=== PATIENT | male | born 1960 | race Caucasian/White ===

== ENCOUNTER 2017-02-02 05:49 | Inpatient (IN) | payer BC ==
[2017-01-29 10:13] LABS: BASOPHILS 0.8 %; BASOPHILS ABSOLUTE 0.05 10/3/uL (0.0-0.16); EOSINOPHILS 4.3 %; EOSINOPHILS ABSOLUTE 0.28 10/3/uL (0.0-0.53); HEMATOCRIT 34.2 % (40.0-51.0); HEMOGLOBIN 11.2 g/dL (13.6-17.8); IMMATURE GRANULOCYTES 0.2 %; IMMATURE GRANULOCYTES ABSOLUTE 0.01 10/3/uL (0.0-0.11); LYMPHOCYTES 16.4 %; LYMPHOCYTES ABSOLUTE 1.08 10/3/uL (0.67-4.30); MANUAL DIFF NO %; MEAN CORPUS HGB CONC 32.7 g/dL (32.0-36.0); MEAN CORPUSCULAR VOLUME 88.6 fL (80-100); MEAN PLATELET VOLUME 9.4 fL (9.2-13.0); MONOCYTES 11.6 %; MONOCYTES ABSOLUTE 0.76 10/3/uL (0.21-1.20); NEUTROPHILS 66.7 %; PLATELET COUNT 378 10/3/uL (150-400); RBC DISTRIBUTION WIDTH 21.6 % (12.0-16.0); RED CELL COUNT 3.86 10/6/uL (4.7-6.1); WHITE BLOOD CELLS 6.6 10/3/uL (4.5-10.5)
[2017-01-29 10:32] LABS: A/G RATIO 1.3 (0.7-1.9); ALBUMIN 4.2 G/DL (3.5-5.0); ALKALINE PHOSPHATASE 69 U/L (45-117); BUN (BLOOD UREA NITROGEN) 18 MG/DL (6-23); CALCIUM, SERUM 10.3 MG/DL (8.5-10.4); CHLORIDE, SERUM 105 MMOL/L (96-112); CO2 (CARBON DIOXIDE) 22 MMOL/L (24-34); CREATININE 1.06 MG/DL (0.70-1.30); GFR AFRICAN AMERICAN 90 ML/MIN (>=60); GFR NON AFRICAN AMERICAN 78 ML/MIN (>=60); GLOBULIN 3.3 G/DL (2.5-4.1); GLUCOSE, SERUM 116 MG/DL (60-99); POTASSIUM, SERUM 4.8 MMOL/L (3.5-5.3); SGOT(AST) 15 U/L (5-40); SGPT(ALT) 19 U/L (5-65); SODIUM, SERUM 136 MMOL/L (135-148); TOTAL BILIRUBIN 0.3 MG/DL (0-1.2); TOTAL PROTEIN 7.5 G/DL (6.0-8.5)
--- NOTE | ~2017-02-02 | PREOPHP ---
PreOp History and Physical [address] [place]. [address] NAME: ALEENA HOLGUIN : 58 STATUS : PRE IN PAT#: [id number] AGE: 56 ADM/REG DATE : MR#: [id number] REPORT SERV DATE: 02/02/17 DICTATED BY: KEENAN ADAMS III DATE: 01/09/17 REPORT STATUS : Draft TRANSCRIBED BY: MODL DATE: 01/09/17 HISTORY OF PRESENT ILLNESS: This 56-year-old male comes to the operating room for sigmoid colectomy for biopsy-proven cancer of the sigmoid colon. The patient recently had routine physical exam. He was found to be profoundly anemic. This led to a colonoscopy and was found have a large partly obstructing mass at 22 cm in the sigmoid colon. Biopsy confirmed this to be adenocarcinoma. The patient has had intermittent episodes of bright red blood associated with this malignancy. These required 2 units of blood in transfusion. The patient has evidence for metastatic disease with three separate hepatic metastasis, which may be resectable or amenable to local treatment. Treatment regarding these will be delayed until after surgery and chemotherapy which is planned for the patient. The patient has had no weight loss. He has some obstructive symptoms in terms of constipation requiring laxatives. PAST MEDICAL HISTORY: 1. Hypertension. 2. Diabetes mellitus. 3. Arthritis. 4. Anemia. 5. Hypothyroidism. 6. Gout. 7. Lobo esophagitis. MEDICATIONS: Allopurinol, carvedilol, fenofibrate, levothyroxine, lisinopril, meloxicam, metformin, methocarbamol, oxycodone, stool softeners. ALLERGIES: NONE. PAST SURGICAL HISTORY: Back surgery. FAMILY HISTORY: Positive for diabetes and heart disease. SOCIAL HISTORY: The patient has a previous tobacco abuse. He has a history of alcohol use. REVIEW OF SYSTEMS: The patient complains of abnormal bleeding, blood in his stools, back pain, joint pain. PHYSICAL EXAMINATION: GENERAL: This is a large somewhat obese male, in no acute distress. He is alert and oriented x3. VITAL SIGNS: Blood pressure 122/59, pulse 77, temperature 97.1. HEENT: Unremarkable. Cranial nerves 2 through 12 are normal. LUNGS: Clear. CARDIAC: Normal. ABDOMEN: Soft, nontender. No masses. EXTREMITIES: Normal with no edema. PreOp History and Physical [address] [address] NAME: ALEENA HOLGUIN : 58 STATUS : PRE IN PAT#: [id number] AGE: 56 ADM/REG DATE : MR#: [id number] REPORT SERV DATE: 02/02/17 DICTATED BY: KEENAN ADAMS III DATE: 01/09/17 REPORT STATUS : Draft TRANSCRIBED BY: MODL DATE: 01/09/17 LABORATORY DATA: Colonoscopy shows a partly obstructing mass, which is ulcerated in sigmoid colon 22 cm. Biopsy confirmed this to be a moderately differentiated adenocarcinoma. CT scan of the abdomen and pelvis shows three separate hepatic lesions, one in the left lobe, two in the right lobe, suspicious for metastasis. ASSESSMENT: 1. 56-year-old male biopsy-proven adenocarcinoma of the sigmoid colon, associated with intermittent bleeding, requiring transfusion, and anemia. This tumor is circumferential and partly obstructing the colon endoscopically. 2. Hypertension. 3. Diabetes mellitus. 4. Arthritis. 5. Anemia related to #1. PLAN: The patient comes to the operating room now for sigmoid colectomy. This procedure, the risks, benefits, and alternatives, including not limited to the risk for bleeding, infection, enterotomy, injury to any abdominal structure, postop small bowel obstruction, ileus, incisional hernia, dehiscence, anastomotic leak, requiring reoperation, colostomy, ureteral injury, and unforeseen complications including deep venous thrombosis, pulmonary embolus, myocardial infarction, stroke, pneumonia, and , have been fully and completely explained to the patient's family prior to surgery. The fact that this is a major operation with risk for major morbidity and mortality has been explained. The expected length of recovery has been explained. The fact that he will need definitive surgery regarding the hepatic metastasis and chemotherapy has been explained. The patient's questions have been answered. He clearly understands the risks and agrees to surgery as planned. JAH/VALENTINA Keenan Adams III, M.D. / [id number]
--- NOTE | ~2017-02-02 | DS ---
Discharge Summary [facility] [address] [place]. [address] NAME: ALEENA HOLGUIN : 58 STATUS : DIS IN PAT#: [id number] AGE: 56 ADM/REG DATE : 02/02/17 MR#: [id number] REPORT SERV DATE: 02/13/17 DICTATED BY: KEENAN ADAMS III DATE: 02/12/17 REPORT STATUS : Draft TRANSCRIBED BY: MODL DATE: 02/12/17 Data Collection from hospitalization DISCHARGE DIAGNOSIS(ES): 1. Sigmoid colon cancer, largely locally advanced sigmoid colon cancer with invasion into the segment of small bowel. 2. Hypertension. 3. Diabetes mellitus. 4. Anemia. 5. Hypothyroidism. 6. History of Lobo esophagitis. 7. Gout. 8. Arthritis. CONSULTATIONS: None. PROCEDURES PERFORMED: Sigmoid colectomy with en-bloc resection of segment of small bowel and rigid sigmoidoscopy, 02/02/2017. PATHOLOGY: Colon sigmoid resection, invasive adenocarcinoma; segment of colon proximal anastomotic ring, no diagnostic change; segment of colon distal anastomotic ring, no diagnostic change. MEDICATIONS: Zyloprim 300 mg every morning, Coreg 12.5 mg twice daily, levothyroxine, sodium 50 mcg daily, Prinivil 40 mg every morning, Prilosec 40 mg every morning, Mobic 15 mg daily, Glucophage 500 mg with breakfast and supper, fenofibrate 160 mg every morning, Roxicodone 10 mg every 6 hours as needed, Ferrex 150 mg twice daily, vitamin C 500 mg twice daily, multiple vitamin one daily, Colace 100 mg twice daily as needed, and Xanax 0.5 mg twice daily. CONDITION AT DISCHARGE: Upon discharge, he did appear to be doing well and had no complaints. DISPOSITION: He had been discharged home to continue a GI soft 1800 calorie, ADA, low fat, low residue diet with activity as discussed. He was to call my office for a followup appointment for two weeks. HOSPITAL COURSE: This 56-year-old male, had recently had a routine physical exam. He was found to be profoundly anemic. This led to a colonoscopy where he was found to have a largely partly obstructing mass at 22 cm in the sigmoid colon. Biopsy confirmed this to be adenocarcinoma. He had intermittent episodes of bright red blood associated with this malignancy. These required 2 units of blood in transfusion. He had evidence for metastatic disease with three separate hepatic metastases which may be resectable or amenable to local treatment. Treatment regarding these will be delayed until after surgery and chemotherapy which was planned for the patient. He had no weight loss. He had some obstructive symptoms in terms of constipation requiring laxatives. He was now admitted for surgery and further treatment. Upon admission to the hospital, he had been taken to the operating room where he did undergo the above procedure. He had tolerated this well and was transferred to the Discharge Summary [address] [address] NAME: ALEENA HOLGUIN : 58 STATUS : DIS IN PAT#: [id number] AGE: 56 ADM/REG DATE : 02/02/17 MR#: [id number] REPORT SERV DATE: 02/13/17 DICTATED BY: KEENAN ADAMS III DATE: 02/12/17 REPORT STATUS : Draft TRANSCRIBED BY: MODJacques DATE: 02/12/17 recovery room. On postop day #1, he did have some incisional pain, however, appeared to be doing well, otherwise, he was afebrile and his vital signs were stable. He had been placed on a clear liquid diet. His Hendricks catheter was removed. On postop day #2, he had no complaints and did appear to be alert and comfortable. He had remained afebrile and his vital signs were stable. His diet was advanced to a full liquid diet, and he was evaluated by Physical Therapy. On postop day #3, he continued to do well and wanted to go home. He had been tolerating a full liquid diet and had no new complaints noted. He did remain in stable condition and was then discharged with the above instructions. Information collected by: Zoë ChristineIAnitaT. I submit the above information as my discharge summary. RW/PAGEL Keenan Adams III, M.D. / [id number] CC: Lexii Underwood III, M.D.
--- NOTE | ~2017-02-02 | OP ---
Record Of Operation [facility] [address] [place] [place]. [address] NAME: ALEENA HOLGUIN : 58 STATUS : ADM IN [facility]#: [id number] AGE: 56 ADM/REG DATE : 02/02/17 MR#: [id number] REPORT SERV DATE: 02/02/17 DICTATED BY: KEENAN ADAMS III DATE: 02/02/17 REPORT STATUS : Draft TRANSCRIBED BY: MODL DATE: 02/02/17 DATE OF PROCEDURE: 02/02/2017 PREOPERATIVE DIAGNOSIS: Sigmoid colon cancer. POSTOPERATIVE DIAGNOSIS: Sigmoid colon cancer, large locally advanced sigmoid colon cancer, with invasion into the segment of small bowel. PROCEDURE: Sigmoid colectomy with en bloc resection of segment of small bowel and rigid sigmoidoscopy. SURGEON: Keenan Adams M.D. ANESTHESIA: General with intubation. COMPLICATIONS: None. ESTIMATED BLOOD LOSS: 50 mL. SPECIMEN: Sigmoid colon with segment of small bowel. DRAINS: [place] in subcutaneous tissue. LAP AND SPONGE COUNT: Correct x3. BRIEF HISTORY: This 56-year-old male, with history of hypertension, diabetes, arthritis, and anemia, presented with a large obstructing and bleeding cancer of the sigmoid colon. The patient had evidence for GI bleeding requiring previous transfusion. His workup showed evidence four hepatic metastatic lesions. It was felt that an urgent sigmoid colectomy was indicated. The plan treatable is for the patient to have sigmoid colectomy, followed by systemic chemotherapy, followed by local treatment of his hepatic metastasis, either radiofrequency ablation, or stereotactic radiation versus surgical resection. Regarding the surgery today, the procedure risks, benefits, and alternatives, including not limited to the risk for bleeding, infection, enterotomy, injury to any abdominal structure, postop small bowel obstruction, ileus, incisional hernia, dehiscence, anastomotic leak, requiring reoperation, colostomy, ureteral injury, and unforeseen complications including deep venous thrombosis, pulmonary embolus, myocardial infarction, stroke, pneumonia, and , were fully and completely explained to the patient's family at length prior to surgery. The fact that this was a major operation with risk for major morbidity and mortality has been explained as well as expected length of recovery. The patient had questions, which were answered. He fully understood the risks and agreed to surgery as planned. FINDINGS: The patient had extremely large cancer of the sigmoid colon. There was an involvement of the segment of small bowel which was resected en bloc. The tumor was Record Of Operation [place] [id number] [facility] [place]. [address] NAME: ALEENA HOLGUIN : 58 STATUS : ADM IN PAT#: [id number] AGE: 56 ADM/REG DATE : 02/02/17 MR#: [id number] REPORT SERV DATE: 02/02/17 DICTATED BY: KEENAN ADAMS III DATE: 02/02/17 REPORT STATUS : Draft TRANSCRIBED BY: VALENTINA DATE: 02/02/17 extremely large and bulky. There was no evidence for carcinomatosis or peritoneal implants in the pelvis. DESCRIPTION OF PROCEDURE: After being properly identified, and after discussing the risks of surgery with the patient and family again in the preoperative area, and after appropriate bowel preparation at home, the patient was taken to the operating room and placed in the supine position on the operating room table. General anesthesia was administered and he was intubated without difficulty. A Hendricks catheter was inserted. His legs were placed in stirrups. They were carefully and appropriately padded and protected. The abdomen and perineum were prepped and draped sterilely in the usual fashion. After an appropriate "time out" per JCAHO standards, a midline incision was made from just beneath the umbilicus towards the pubis. The incision was continued through the subcutaneous tissue. Hemostasis was controlled with cautery. The incision was continued through the fascia. The abdominal cavity was entered. The patient had extremely large, bulky cancer of the sigmoid colon occupying the majority of the pelvis. There was a loop of small bowel which was adherent to this and the tumor appeared to be invading into the small bowel, and it was felt that this en bloc resection of this loop of small bowel was indicated. There was no evidence for carcinomatosis or peritoneal implants. Using sharp dissection, peritoneal flexion to the left colon and sigmoid colon was divided along the line of Toldt. The colon was mobilized medially. We selected a point for division of the sigmoid colon near its junction with the left colon. A window was made in the mesentery of the colon at this point. A AVINASH stapler used about the colon this point. We continued our mobilization distally. The left and right ureters were appreciated not encroached upon or injured. Again, there was a segment of small bowel which was densely adherent to the mesentery where the tumor was located. It was felt that resection of the small bowel was indicated in order to obtain clear margins. We selected a point for division of the small bowel proximal and distal to this area. Windows were made in the mesentery to the small bowel and the AVINASH stapler was used about the mesentery of small bowel at this point proximally and distally. The mesentery to the sigmoid colon was then divided using the Harmonic scalpel. This was done along the base of the mesentery, so as to perform correct oncologic dissection of the lymphovascular supply to the sigmoid colon. The colon sigmoid colon was then divided distal to the tumor, just above the peritoneal reflection. This was done using the Contour stapler. The sigmoid colon involved segment of small bowel was thus removed and sent to pathology and interpreted as containing clear margins. We then performed a ceia-me-gqog anastomosis between the proximal and distal small bowel, which had been divided. The antimesenteric border of small bowel proximally and distally were aligned with interrupted 3-0 silk sutures. A small opening was then made in the antimesenteric border of the small bowel proximally and distally and AVINASH stapler was placed through this and fired. The defect created by the stapler was closed with a TA-60 stapler. This staple line was oversewn with interrupted 3-0 silk sutures. The "crotch" anastomosis was secured with 3-0 silk sutures. Upon completion of this, the anastomosis was widely Record Of Operation [address] [place]. [address] NAME: ALEENA HOLGUIN : 58 STATUS : ADM IN [facility]#: [id number] AGE: 56 ADM/REG DATE : 02/02/17 MR#: [id number] REPORT SERV DATE: 02/02/17 DICTATED BY: KEENAN ADAMS III DATE: 02/02/17 REPORT STATUS : Draft TRANSCRIBED BY: MODL DATE: 02/02/17 patent to palpation. It was not twisted or kinked in anyway and was not under any tension. We then performed a primary anastomosis between the divided left colon and the proximal rectum. This was done using the EEA stapler. A 2-0 Prolene pursestring was placed around and divided in the left colon. The staple in the left colon was excised. Sizers were placed into the lumen of the colon, it was determined that a #29 EEA stapler will be the appropriate size. The anvil was removed from the stapling device and placed into the lumen of the colon, the pursestring was secured. At this time, a rigid sigmoidoscope was placed into the rectum. Air was passed into the rectal stump with saline in the pelvis. The rectal stump was noted to be watertight. The stapling device was then carefully passed into the rectum up to the rectal stump. The pin was opened and passed through the rectal stump. This pin was connected to the anvil and placed in the left colon. The stapling device was then carefully closed and fired. Two good complete "doughnuts" were obtained, indicating a good anastomosis. These were sent separately to pathology. The anterior aspect of the anastomosis was reinforced with interrupted 3-0 silk sutures. Rigid sigmoidoscopy was again performed, and air was passed through the anastomosis with saline in the pelvis. The anastomosis was noted to be watertight with no evidence for leakage or extravasation. The anastomosis was patent to palpation. It was not twisted or kinked in anyway and was not under any tension. The area was irrigated copiously with saline. Hemostasis was assured. The fascia was closed with a running looped #1 PDS suture. The subcutaneous tissue with closed running 3-0 chromic suture over a [place] drain which was brought through the inferior aspect of the incision. The skin was closed with running subcuticular 4-0 Monocryl stitch. Dressings were applied. Anesthesia was reversed and the patient was taken to the recovery room in stable condition. He tolerated the procedure well. His family was informed the results of surgery. The patient will remain in the hospital for postoperative care. RHJ/MODL Keenan Adams III, M.D. / [id number] CC: Lexii Underwood III, M.D.
[~2017-02-02 05:49] MED LIST: COREG12 PO; DSS PO; FERREX 150150 MG PO; GLUCPH PO; LEVOTHYROXIN50 MCG PO; LISINOPRIL40 MG PO; LOFIB160 PO; METHOC750B PO; MOBIC15 MG PO; MULTIPLE VIT PO; OXYCOD PO; PRILOSEC40 MG PO; VITC500 PO; X5 PO; Z300 PO
[2017-02-02 07:01] LABS: INTERNATIONAL NORMAL RATI 1.1 UNITS (-); PARTIAL THROMBO TIME 36.1 SEC (22.5-37.2); PROTIME (NOT ORD) 14.3 SEC (12.0-14.5)
[2017-02-03 05:18] LABS: BASOPHILS 0.1 %; BASOPHILS ABSOLUTE 0.01 10/3/uL (0.0-0.16); EOSINOPHILS 0.5 %; EOSINOPHILS ABSOLUTE 0.04 10/3/uL (0.0-0.53); HEMOGLOBIN 10.3 g/dL (13.6-17.8); IMMATURE GRANULOCYTES 0.2 %; IMMATURE GRANULOCYTES ABSOLUTE 0.02 10/3/uL (0.0-0.11); LYMPHOCYTES 10.1 %; LYMPHOCYTES ABSOLUTE 0.87 10/3/uL (0.67-4.30); MEAN CORPUS HGB CONC 33.6 g/dL (32.0-36.0); MEAN CORPUSCULAR HEMOGLOB 29.8 pg (26.0-34.0); MEAN CORPUSCULAR VOLUME 88.7 fL (80-100); MONOCYTES 14.4 %; MONOCYTES ABSOLUTE 1.24 10/3/uL (0.21-1.20); NEUTROPHILS 74.7 %; NEUTROPHILS ABSOLUTE 6.44 10/3/uL (2.02-8.40); PLATELET COUNT 328 10/3/uL (150-400); RBC DISTRIBUTION WIDTH 19.8 % (12.0-16.0); RED CELL COUNT 3.46 10/6/uL (4.7-6.1); WHITE BLOOD CELLS 8.6 10/3/uL (4.5-10.5)
[2017-02-03 05:20] LABS: HEMATOCRIT 30.7 % (40.0-51.0); MANUAL DIFF NO %
[2017-02-03 05:34] LABS: CHLORIDE, SERUM 104 MMOL/L (96-112); CO2 (CARBON DIOXIDE) 23 MMOL/L (24-34); CREATININE 0.95 MG/DL (0.70-1.30); GFR AFRICAN AMERICAN 103 ML/MIN (>=60); GFR NON AFRICAN AMERICAN 89 ML/MIN (>=60); SODIUM, SERUM 137 MMOL/L (135-148)
[2017-02-03 05:35] LABS: BUN (BLOOD UREA NITROGEN) 9 MG/DL (6-23); CALCIUM, SERUM 9.1 MG/DL (8.5-10.4); GLUCOSE, SERUM 169 MG/DL (60-99)
[2017-02-04 05:19] LABS: BASOPHILS 0.9 %; BASOPHILS ABSOLUTE 0.05 10/3/uL (0.0-0.16); EOSINOPHILS 4.9 %; EOSINOPHILS ABSOLUTE 0.27 10/3/uL (0.0-0.53); HEMATOCRIT 27.7 % (40.0-51.0); HEMOGLOBIN 9.4 g/dL (13.6-17.8); IMMATURE GRANULOCYTES 0.2 %; IMMATURE GRANULOCYTES ABSOLUTE 0.01 10/3/uL (0.0-0.11); LYMPHOCYTES 19.2 %; LYMPHOCYTES ABSOLUTE 1.06 10/3/uL (0.67-4.30); MEAN CORPUS HGB CONC 33.9 g/dL (32.0-36.0); MEAN CORPUSCULAR HEMOGLOB 29.9 pg (26.0-34.0); MEAN CORPUSCULAR VOLUME 88.2 fL (80-100); MEAN PLATELET VOLUME 9.3 fL (9.2-13.0); MONOCYTES 15.8 %; MONOCYTES ABSOLUTE 0.87 10/3/uL (0.21-1.20); NEUTROPHILS ABSOLUTE 3.25 10/3/uL (2.02-8.40); PLATELET COUNT 276 10/3/uL (150-400); RBC DISTRIBUTION WIDTH 19.3 % (12.0-16.0); RED CELL COUNT 3.14 10/6/uL (4.7-6.1); WHITE BLOOD CELLS 5.5 10/3/uL (4.5-10.5)
[2017-02-04 05:20] LABS: MANUAL DIFF NO %
[2017-02-04 05:34] LABS: BUN (BLOOD UREA NITROGEN) 7 MG/DL (6-23); CALCIUM, SERUM 8.9 MG/DL (8.5-10.4); CHLORIDE, SERUM 102 MMOL/L (96-112); CO2 (CARBON DIOXIDE) 25 MMOL/L (24-34); CREATININE 0.86 MG/DL (0.70-1.30); GFR AFRICAN AMERICAN 112 ML/MIN (>=60); GFR NON AFRICAN AMERICAN 96 ML/MIN (>=60); POTASSIUM, SERUM 4.4 MMOL/L (3.5-5.3); SODIUM, SERUM 131 MMOL/L (135-148)
[2017-02-04 05:35] LABS: GLUCOSE, SERUM 124 MG/DL (60-99)
[2017-02-05 04:34] LABS: BASOPHILS 0.9 %; BASOPHILS ABSOLUTE 0.05 10/3/uL (0.0-0.16); EOSINOPHILS ABSOLUTE 0.41 10/3/uL (0.0-0.53); HEMATOCRIT 30.1 % (40.0-51.0); HEMOGLOBIN 9.9 g/dL (13.6-17.8); IMMATURE GRANULOCYTES 0.2 %; IMMATURE GRANULOCYTES ABSOLUTE 0.01 10/3/uL (0.0-0.11); LYMPHOCYTES ABSOLUTE 0.82 10/3/uL (0.67-4.30); MEAN CORPUS HGB CONC 32.9 g/dL (32.0-36.0); MEAN CORPUSCULAR HEMOGLOB 29.6 pg (26.0-34.0); MEAN CORPUSCULAR VOLUME 90.1 fL (80-100); MEAN PLATELET VOLUME 9.4 fL (9.2-13.0); MONOCYTES 13.3 %; MONOCYTES ABSOLUTE 0.78 10/3/uL (0.21-1.20); NEUTROPHILS 64.6 %; NEUTROPHILS ABSOLUTE 3.79 10/3/uL (2.02-8.40); PLATELET COUNT 294 10/3/uL (150-400); RBC DISTRIBUTION WIDTH 19.4 % (12.0-16.0); RED CELL COUNT 3.34 10/6/uL (4.7-6.1); WHITE BLOOD CELLS 5.9 10/3/uL (4.5-10.5)
[2017-02-05 04:37] LABS: MANUAL DIFF NO %
[2017-02-05 04:45] LABS: BUN (BLOOD UREA NITROGEN) 6 MG/DL (6-23); CALCIUM, SERUM 9.3 MG/DL (8.5-10.4); CHLORIDE, SERUM 105 MMOL/L (96-112); CO2 (CARBON DIOXIDE) 25 MMOL/L (24-34); CREATININE 0.89 MG/DL (0.70-1.30); GFR AFRICAN AMERICAN 110 ML/MIN (>=60); GFR NON AFRICAN AMERICAN 95 ML/MIN (>=60); GLUCOSE, SERUM 129 MG/DL (60-99); POTASSIUM, SERUM 4.4 MMOL/L (3.5-5.3)
[2017-02-05 04:46] LABS: SODIUM, SERUM 138 MMOL/L (135-148)
[2017-02-05] MEDS ORDERED: PERCOCET 7.5/321 TAB PO (08:25)
== END 2017-02-05 10:10 | disposition home or self-care (01) | DRG 330 ==
LOC: SDC/OF 05:49 → PACU 10:05 → 5SO 13:06
PROVIDERS: Surgery
PROC: 0DJD8ZZ Inspection of Lower Intestinal Tract, Via Natural or Artificial Opening Endoscopic (ICD-10-PCS; 2017-02-02)
PROC: 0DBN0ZZ Excision of Sigmoid Colon, Open Approach (ICD-10-PCS; principal; 2017-02-02 07:45)
PROC: 30233N1 Transfusion of Nonautologous Red Blood Cells into Peripheral Vein, Percutaneous Approach (ICD-10-PCS; 2017-02-02 07:45)
DX: C18.7 Malignant neoplasm of sigmoid colon (principal); K92.1 Melena; C78.7 Secondary malignant neoplasm of liver and intrahepatic bile duct; E11.40 Type 2 diabetes mellitus with diabetic neuropathy, unspecified; D62 Acute posthemorrhagic anemia; E11.9 Type 2 diabetes mellitus without complications; M19.90 Unspecified osteoarthritis, unspecified site; E03.9 Hypothyroidism, unspecified; Z83.3 Family history of diabetes mellitus; Z82.49 Family history of ischemic heart disease and other diseases of the circulatory system; Z87.891 Personal history of nicotine dependence; Z79.899 Other long term (current) drug therapy; F41.9 Anxiety disorder, unspecified; K21.9 Gastro-esophageal reflux disease without esophagitis
CPT/HCPCS: 36415; 71020; 80048; 80053; 82962; 85025; 85610; 85730; 86850; 86900; 86901; 88309; 88313; 88341; 88342; 93005; 97162-GP; A9270-GY; C9113; J0690; J1885; J2250; J2270; J2405; J2710; J2795; J3010

== ENCOUNTER 2017-03-14 10:54 | Day surgery (SDC) | payer BC ==
[2017-03-13 15:31] LABS: BASOPHILS 0.8 %; BASOPHILS ABSOLUTE 0.04 10/3/uL (0.0-0.16); EOSINOPHILS 3.1 %; EOSINOPHILS ABSOLUTE 0.15 10/3/uL (0.0-0.53); HEMATOCRIT 31.9 % (40.0-51.0); HEMOGLOBIN 10.4 g/dL (13.6-17.8); LYMPHOCYTES 31.6 %; LYMPHOCYTES ABSOLUTE 1.53 10/3/uL (0.67-4.30); MEAN CORPUS HGB CONC 32.6 g/dL (32.0-36.0); MEAN CORPUSCULAR HEMOGLOB 29.9 pg (26.0-34.0); MEAN PLATELET VOLUME 9.7 fL (9.2-13.0); MONOCYTES 10.5 %; MONOCYTES ABSOLUTE 0.51 10/3/uL (0.21-1.20); NEUTROPHILS ABSOLUTE 2.61 10/3/uL (2.02-8.40); RBC DISTRIBUTION WIDTH 15.9 % (12.0-16.0); RED CELL COUNT 3.48 10/6/uL (4.7-6.1); WHITE BLOOD CELLS 4.8 10/3/uL (4.5-10.5)
[2017-03-13 15:32] LABS: MANUAL DIFF NO %; MEAN CORPUSCULAR VOLUME 91.7 fL (80-100); PLATELET COUNT 233 10/3/uL (150-400)
[2017-03-13 16:18] LABS: A/G RATIO 1.4 (0.7-1.9); ALBUMIN 3.8 G/DL (3.5-5.0); ALKALINE PHOSPHATASE 56 U/L (45-117); BUN (BLOOD UREA NITROGEN) 12 MG/DL (6-23); CALCIUM, SERUM 8.9 MG/DL (8.5-10.4); CHLORIDE, SERUM 107 MMOL/L (96-112); CO2 (CARBON DIOXIDE) 26 MMOL/L (24-34); CREATININE 1.03 MG/DL (0.70-1.30); GFR AFRICAN AMERICAN 93 ML/MIN (>=60); GFR NON AFRICAN AMERICAN 80 ML/MIN (>=60); GLOBULIN 2.8 G/DL (2.5-4.1); GLUCOSE, SERUM 88 MG/DL (60-99); POTASSIUM, SERUM 4.1 MMOL/L (3.5-5.3); SGOT(AST) 14 U/L (5-40); SGPT(ALT) 16 U/L (5-65); SODIUM, SERUM 142 MMOL/L (135-148); TOTAL BILIRUBIN 0.2 MG/DL (0-1.2); TOTAL PROTEIN 6.6 G/DL (6.0-8.5)
--- NOTE | ~2017-03-14 | OP ---
Record Of Operation [facility] [address] [place]. [address] NAME: ALEENA HOLGUIN : 58 STATUS : [facility]#: [id number] AGE: 56 ADM/REG DATE : 03/14/17 MR#: [id number] REPORT SERV DATE: 03/14/17 DICTATED BY: KEENAN ADAMS III DATE: 03/14/17 REPORT STATUS : Draft TRANSCRIBED BY: MODJacques DATE: 03/14/17 DATE OF PROCEDURE: 03/14/2017 PREOPERATIVE DIAGNOSIS: Sigmoid colon cancer, with need for subclavian vein Port-A-Cath placement to allow for chronic IV access for chemotherapy. POSTOPERATIVE DIAGNOSIS: Sigmoid colon cancer, with need for subclavian vein Port-A-Cath placement to allow for chronic IV access for chemotherapy. PROCEDURE: Right subclavian vein Port-A-Cath placement with fluoroscopy. ANESTHESIA: General with intubation. COMPLICATIONS: None. ESTIMATED BLOOD LOSS: Less than 5 mL. SPECIMENS: None. DRAINS: None. LAP AND SPONGE COUNT: Correct x3. BRIEF HISTORY: This 56-year-old male was recently diagnosed with sigmoid colon cancer. We have been asked by his medical oncologist to place a Port-A-Cath to allow for chronic IV access for chemotherapy. This procedure, the risks, benefits, and alternatives, including not limited to the risk of bleeding, infection, pneumothorax, air embolus, pericardial tamponade, failure of the port to function, infection of the port or subclavian vein thrombosis requiring removal of the port, dislodgement of the Port-A-Cath tubing requiring extraction, and unforeseen complications including deep venous thrombosis, pulmonary embolus, myocardial infarction, stroke, pneumonia, and , were fully explained to the patient prior to surgery. His questions were answered. He understood the risks and agreed to the surgery as planned. DESCRIPTION OF PROCEDURE: After being appropriately identified, and after discussing risks of surgery with the patient again in the preoperative area, the patient was taken to the operating room and placed in the supine position on the operating room table. General anesthesia was administered, and the patient was intubated without difficulty. The upper chest and neck areas were prepped and draped sterilely in the usual fashion. After an appropriate "time-out" per JCAHO standards, a needle was used to identify the right subclavian vein. The vein was identified on the first pass of the needle. A guidewire was passed through the needle and the needle was removed. Fluoroscopy was performed, confirming the tip of the guidewire to be in the correct position of superior vena cava. A small transverse incision was then made at the exit site of the guidewire from the skin. A subcutaneous infraclavicular pocket was made of the appropriate size for the Port-A-Cath housing. The Port-A-Cath housing was connected to the tubing. The Port-A-Cath housing and Record Of Operation [facility] [address] [facility] [place]. [address] NAME: ALEENA HOLGUIN : 58 STATUS : [facility]#: [id number] AGE: 56 ADM/REG DATE : 03/14/17 MR#: [id number] REPORT SERV DATE: 03/14/17 DICTATED BY: KEENAN ADAMS III DATE: 03/14/17 REPORT STATUS : Draft TRANSCRIBED BY: MODL DATE: 03/14/17 tubing were flushed with a heparin solution, and the tubing was cut to the appropriate length. The introducer was then placed over the guidewire. The guidewire and inner dilator were removed. The Port-A-Cath tubing was then placed through the sheath as the sheath was peeled away. This went very smoothly. The Port-A-Cath housing was positioned in the infraclavicular pocket. It was secured in place with 2-0 silk sutures. It was accessed with a Ellison needle and noted to aspirate blood easily. It was then flushed with heparin solution noted to flush easily. Repeat fluoroscopy was performed, confirming the tip of the Port-A-Cath tubing to be in the correct position in superior vena cava. Hemostasis was assured. The subcutaneous tissue was closed with a running 3-0 Vicryl suture. The skin was closed with running subcuticular 4-0 Monocryl stitch. The incision was injected with 0.5% Marcaine. Dressings were applied. Anesthesia was reversed, and the patient was taken to recovery room in stable condition. The patient tolerated the procedure well. The patient will be discharged later when stable and comfortable after the chest x-ray has been cleared per Radiology. The patient's family was advised that the wound should be kept clean and dry for 48 hours, that there should be no driving for 2-3 days after surgery or while using narcotics, and the patient shall resume usual medications. The patient was asked to return in two weeks for followup or sooner for any fever, chills, wound drainage, or other problems prior to that time. RHJ/MODL Keenan Adams III, M.D. / [id number] CC: Lexii Underwood III, M.D.
--- NOTE | ~2017-03-14 | HP ---
History And Physical [id number] [place]. [address] NAME: ALEENA HOLGUIN : 58 STATUS : REG [facility]#: [id number] AGE: 56 ADM/REG DATE : 03/14/17 MR#: [id number] REPORT SERV DATE: 03/14/17 DICTATED BY: KEENAN ADAMS III DATE: 03/14/17 REPORT STATUS : Draft TRANSCRIBED BY: MODL DATE: 03/14/17 DATE OF ADMISSION: 03/14/2017 (This is the second history and physical on this patient which was dictated prior to surgery). HISTORY OF PRESENT ILLNESS: This 56-year-old male comes to the operating room for subclavian vein Port-A-Cath placement. The patient has recently been diagnosed with sigmoid colon cancer. We have been asked by his medical oncologist to place a Port-A-Cath to allow for chronic IV access for chemotherapy. The patient comes now for Port-A-Cath placement. PAST MEDICAL HISTORY: History of sigmoid colon cancer, status post sigmoid colectomy. PHYSICAL EXAMINATION: OBJECTIVE: GENERAL: This is a male, in no acute distress. He is alert and oriented x3. HEENT: Unremarkable. NEUROLOGIC: Cranial nerves 2 through 12 were normal. LUNGS: Clear. CARDIAC: Normal. ABDOMEN: Soft and nontender. ASSESSMENT: A 56-year-old male with sigmoid colon cancer, with need for subclavian vein Port A-Cath placement to allow for chronic IV access for chemotherapy. PLAN: The patient comes to the operating room now for subclavian vein Port-A-Cath placement. This procedure, the risks, benefits, and alternatives, including not limited to the risk of bleeding, infection, pneumothorax, air embolus, pericardial tamponade, failure of the port to function, infection of the port, or subclavian vein thrombosis, requiring removal of port, dislodgement of the Port-A-Cath tubing requiring extraction, and unforeseen complications including deep venous thrombosis, pulmonary embolus, myocardial infarction, stroke, pneumonia, and , have been explained the patient prior to surgery. His questions have been answered. He understands the risks and agrees to the surgery as planned. JAH/VALENTINA Keenan Adams III, M.D. / [id number] CC: History And Physical [address] [place]. [address] NAME: ALEENA HOLGUIN : 58 [place] [facility] [place] [id number] AGE: 56 ADM/REG DATE : 03/14/17 MR#: [id number] REPORT SERV DATE: 03/14/17 DICTATED BY: KEENAN ADAMS III DATE: 03/14/17 REPORT STATUS : Draft TRANSCRIBED BY: MODL DATE: 03/14/17 Lexii Underwood III, M.D.
--- NOTE | ~2017-03-14 | PREOPHP ---
PreOp History and Physical [address] [place]. [address] NAME: ALEENA HOLGUIN : 58 STATUS : [facility]#: [id number] AGE: 56 ADM/REG DATE : 03/14/17 MR#: [id number] REPORT SERV DATE: 03/15/17 DICTATED BY: KEENAN ADAMS III DATE: 03/12/17 REPORT STATUS : Draft TRANSCRIBED BY: VALENTINA DATE: 03/12/17 HISTORY OF PRESENT ILLNESS: This 56-year-old male comes to the operating room for subclavian Port-A-Cath placement to allow for chronic IV access for chemotherapy. The patient has recently diagnosed with sigmoid colon cancer. He is status post sigmoid colectomy performed on 02/02/2017 for stage III sigmoid colon cancer. He has recovered well from surgery and comes now for subclavian Port-A-Cath placement to allow for chronic IV access for chemotherapy. PAST MEDICAL HISTORY: 1. History of sigmoid colon cancer as above, status post sigmoid colectomy. 2. Hypertension. 3. Diabetes mellitus. 4. Arthritis. 5. Anemia. 6. Hypothyroidism. 7. Gout. 8. Lobo's esophagitis. MEDICATIONS: Allopurinol, carvedilol, fenofibrate, levothyroxine, lisinopril, meloxicam, metformin, methocarbamol, oxycodone. ALLERGIES: NONE. OBJECTIVE/PHYSICAL EXAMINATION: GENERAL: This is a male, in no acute distress. He is alert and oriented x3. HEENT: Unremarkable. NEURO: Cranial 2 through 12 are normal. LUNGS: Clear. CARDIAC: Normal. ASSESSMENT: A 56-year-old male with stage IIIC sigmoid colon cancer, with need for subclavian Port-A-Cath placement to allow for chronic IV access for chemotherapy. 1. Hypertension. 2. Diabetes mellitus. 3. Arthritis. 4. Anemia. 5. Gout. PLAN: The patient comes to the operating room now for subclavian Port-A-Cath placement. This procedure, the risks, benefits, and alternatives, including not limited to the risk for bleeding, infection, pneumothorax, air embolus, pericardial tamponade, dislodgement of the Port-A-Cath tubing requiring extraction, failure of the port to function, requiring removal of subclavian vein thrombosis, requiring removal of dislodgement of tubing, requiring extraction, pneumothorax and unforeseen complications including deep venous thrombosis, pulmonary embolus, myocardial infarction, stroke, pneumonia, and have been explained to the patient prior to surgery. His questions have been answered. He understands the risks and agrees to surgery as planned. PreOp History and Physical [address] [place]. [address] NAME: ALEENA HOLGUIN : 58 STATUS : [facility] PAT#: [id number] AGE: 56 ADM/REG DATE : 03/14/17 MR#: [id number] REPORT SERV DATE: 03/15/17 DICTATED BY: KEENAN ADAMS III DATE: 03/12/17 REPORT STATUS : Draft TRANSCRIBED BY: VALENTINA DATE: 03/12/17 Rick/VALENTINA Keenan Adams III, M.D. / [id number] CC: Keenan Adams III, M.D.
[~2017-03-14 10:54] MED LIST changes: +PERCOCET 7.5/321 TAB PO
== END 2017-03-14 17:27 | disposition home or self-care (01) ==
LOC: SDC 10:54
PROVIDERS: Surgery
PROC: 4A023N8 Measurement of Cardiac Sampling and Pressure, Bilateral, Percutaneous Approach (ICD-10-PCS; principal; 2017-03-14 12:15)
DX: C18.7 Malignant neoplasm of sigmoid colon (principal); I10 Essential (primary) hypertension; E11.9 Type 2 diabetes mellitus without complications; M19.90 Unspecified osteoarthritis, unspecified site; D64.9 Anemia, unspecified; M10.9 Gout, unspecified; F41.9 Anxiety disorder, unspecified; E03.9 Hypothyroidism, unspecified; Z79.899 Other long term (current) drug therapy; Z87.891 Personal history of nicotine dependence
CPT/HCPCS: 71010; 77001; 80053; 82962; 85025; 93005; C1751; J0690; J2250; J2405; J3010